=== PATIENT | male | born 1990 | race Caucasian/White ===

== ENCOUNTER 2022-04-21 12:23 | Emergency (ER) | payer BC, SELFPAY ==
--- NOTE | 2022-04-21 12:28 | ED.DENTAL ---
HPI - Dental/Oral General Chief complaint: Dental/Oral Stated complaint: DENTAL PAIN/FACIAL SWELLING Time Seen by Provider: 04/21/22 12:28 Source: patient and RN notes reviewed History of Present Illness HPI Narrative: Patient is a 31-year-old male who presents the urgent care with complaints of right upper dental pain with facial swelling. Patient states has been going on approximately 2 days. Denies of any fever, nausea or vomiting. Patient states he has been doing extra mouthwash and taking Tylenol. Denies of any trouble swallowing. No other acute complaints. No acute distress noted. Patient aware of the plan of care. Some parts of this dictation were generated by voice recognition software and may contain typographical and/or grammatical inaccuracies. Related Data Allergies Allergy/AdvReac Type Severity Reaction Status Date / Time hydrocodone Allergy Swelling Verified 04/21/22 12:49 meperidine [From Demerol] Allergy Hives Verified 04/21/22 12:49 Review of Systems Review of Systems: CONSTITUTIONAL: Denies fever, chills, or sweats. EYES: Denies visual changes, redness, or discharge. ENT: Denies rhinorrhea, congestion, sore throat, or otalgia. Reports of right upper dental pain and swelling CARDIOVASCULAR: Denies chest pain, palpitations, or edema. RESPIRATORY: Denies cough or dyspnea. GASTROINTESTINAL: Denies abdominal pain, nausea, vomiting, or diarrhea. GENITOURINARY: Denies dysuria or hematuria. SKIN: Denies rash or itching. MUSCULOSKELETAL: Denies back pain, joint pain, or myalgia. NEUROLOGIC: Denies headache, numbness, or weakness. All other systems reviewed are negative, except as documented in HPI. PMFSH Comments At the time of my signature, I reviewed and agree with the nursing past medical, surgical, social, and family history. There is no relevant family history pertinent to the patient complaint. Exam Narrative: GENERAL: This is a well-nourished, well-developed patient, in no apparent distress. HEAD: normocephalic, atraumatic. EYES: PERRL. Sclera clear/white. Vision is grossly intact. EARS: External ears normal, auditory canals clear and without drainage, TMs normal without perforation. Hearing grossly intact. NOSE: External nose normal with no obvious nasal discharge, nares without redness, no rhinorrhea. THROAT: Mucous membranes moist, posterior pharynx clear. DENTAL: Poor dentition with multiple caries throughout. Completely avulsed lateral upper right incisor and canine with surrounding edema/erythema/abscess, mild right upper facial edema NECK: Neck supple, non-tender without lymphadenopathy CARDIOVASCULAR: Regular rate and rhythm without murmurs, gallops, or rubs. RESPIRATORY: Clear to auscultation. Breath sounds equal bilaterally. No wheezes, rales, or rhonchi. SKIN: warm, intact with no suspicious lesions or rash, good texture and turgor. NEURO: awake, alert, and oriented to person, place and time. There were no obvious focal neurologic abnormalities. EXTREMITIES: No clubbing, cyanosis, or edema. Course Course Level of Care: Express Care Visit Vital Signs Vital signs: Vital Signs Temperature 97.2 F L 04/21/22 12:50 Pulse Rate 76 04/21/22 12:50 Respiratory Rate 18 04/21/22 12:50 Blood Pressure 119/80 04/21/22 12:50 Pulse Oximetry 98 04/21/22 12:50 Temperature 97.2 F L 04/21/22 12:50 Pulse Rate 76 04/21/22 12:50 Respiratory Rate 18 04/21/22 12:50 Blood Pressure 119/80 04/21/22 12:50 Pulse Oximetry 98 04/21/22 12:50 Reviewed MDM - Dental/Oral MDM Narrative Medical decision making narrative: Advised the patient to complete the oral antibiotic regimen as prescribed. Be sure to eat and drink with the medication. May continue the mouthwash and the is good oral hygiene. Use Tylenol/ibuprofen as needed for pain. May use a warm compress or ice to the face for swelling and discomfort. If you have any increase in swelling associated with difficulty swallowing
[2022-04-21 12:50] VITALS: BP 119/80; PULSE 76; RESP 18; TEMP 36.2; O2SAT 98
== END 2022-04-21 13:05 | disposition home or self-care (01) ==
PROVIDERS: Emergency Provider Nurse Practitioner Family
DX: K04.7 Periapical abscess without sinus (principal)
CPT/HCPCS: 99213; G0463

== ENCOUNTER 2024-07-03 19:00 | Emergency (ER) | payer OTHER, SELFPAY ==
[2024-07-03 19:12] VITALS: BP 118/71; PULSE 82; RESP 18; TEMP 36.8; O2SAT 96
[2024-07-03] MEDS: CIPROFLOXACIN 500 MG TAB PO (20:32)
[2024-07-03 21:02] VITALS: BP 141/97; PULSE 63; RESP 14; O2SAT 98
[2024-07-03] MEDS: CLINDAMYCIN HCL 150 MG CAP 600 MG PO (21:02)
--- NOTE | 2024-07-04 02:25 | ED.EAR ---
HPI - Ear Problem General Chief complaint: Ear Stated complaint: ear infection Time Seen by Provider: 07/03/24 19:30 History of Present Illness HPI Narrative: Patient states that he tried to pop a pimple behind his left ear and it became significantly tender and started swelling, started yesterday. No systemic symptoms Related Data Allergies Allergy/AdvReac Type Severity Reaction Status Date / Time hydrocodone Allergy Swelling Verified 07/03/24 19:19 meperidine [From Demerol] Allergy Hives Verified 07/03/24 19:19 Review of Systems Review of Systems: All systems reviewed & are unremarkable except as noted in HPI and below Exam Narrative: EXAMINATION OF ORGAN SYSTEMS/BODY AREAS: Constitutional: Vital signs per nursing GENERAL:[No acute distress, non-toxic appearing.] HEAD: Normal with no signs of head trauma. EYES: EOMI, conjunctiva normal ENT: Fluctuance retroauricular with pointing and tenderness; small/minimal swelling/tenderness to mastoid LUNGS: Nonlabored breathing. HEART: [Regular rate and rhythm] ABD: No distension EXT: Normal range of motion SKIN: [No rashes or lesions.] NEURO: [Alert and oriented x 3. No gross focal sensory or strength deficits.] PSYCH: Normal affect Course Vital Signs Vital signs: Vital Signs Temperature 98.3 F 07/03/24 19:12 Pulse Rate 82 07/03/24 19:12 Respiratory Rate 18 07/03/24 19:12 Blood Pressure 118/71 07/03/24 19:12 Pulse Oximetry 96 07/03/24 19:12 Oxygen Delivery Room Air 07/03/24 19:12 Temperature 98.3 F 07/03/24 19:12 Pulse Rate 63 07/03/24 21:02 Respiratory Rate 14 07/03/24 21:02 Blood Pressure 141/97 H 07/03/24 21:02 Pulse Oximetry 98 07/03/24 21:02 Oxygen Delivery Room Air 07/03/24 19:12 Procedures Abscess I/D other: Date of Incision: 07/03/24 Side (if applicable): left Local Anesthetic: lidocaine 1% Amount of anesthesia used (mL): 2 Technique: incised with #11 blade and probed loculations Amount of fluid expressed (mL): 0.5 Medical Decision Making MDM Narrative Medical decision making narrative: 34-year-old male presenting with retroauricular abscess. No significant mastoid swelling or tenderness and no systemic symptoms and normal vital signs. I did call ENT on-call Dr. Triana and discussed this with him and he states safe to drain at bedside here with antibiotics that cover for Pseudomonas and follow-up in the clinic. He is given a dose of clindamycin and ciprofloxacin and strict return precautions and follow-up instructions, I have asked him to call tomorrow to try to be seen in the clinic tomorrow. Vital Signs Vital Signs: Vital Signs Temperature 98.3 F 07/03/24 19:12 Pulse Rate 82 07/03/24 19:12 Respiratory Rate 18 07/03/24 19:12 Blood Pressure 118/71 07/03/24 19:12 Pulse Oximetry 96 07/03/24 19:12 Oxygen Delivery Room Air 07/03/24 19:12 Temperature 98.3 F 07/03/24 19:12 Pulse Rate 63 07/03/24 21:02 Respiratory Rate 14 07/03/24 21:02 Blood Pressure 141/97 H 07/03/24 21:02 Pulse Oximetry 98 07/03/24 21:02 Oxygen Delivery Room Air 07/03/24 19:12 Discharge Plan Discharge Clinical Impression: Abscess of external ear Patient Disposition: Home, Self-Care Condition: Stable Instructions: Antibiotic Form, Abscess Incision and Drainage (DC) Additional Instructions: Call/go to the ENT tomorrow for wound recheck; you may need further drainage/treatment of this ear. Come back to the ER if your symptoms worsen especially if you start having swelling/pain to the bone behind your ear. Prescriptions: New ciprofloxacin HCl 500 mg tablet 500 mg PO Q12H Qty: 14 0RF clindamycin HCl 300 mg capsule 600 mg PO Q8H 7 Days Qty: 42 0RF No Action amoxicillin-pot clavulanate 875-125 mg tablet 1 tablet PO Q12H Qty: 20 0RF ibuprofen 800 mg tablet 800 mg PO TID PRN (Reason: pain) Qty: 60 0RF Fol
== END 2024-07-03 21:03 | disposition home or self-care (01) ==
PROVIDERS: Emergency Provider Emergency Medicine
DX: H60.02 Abscess of left external ear (principal)
CPT/HCPCS: 69000; 99283; A9270

== ENCOUNTER 2024-07-13 09:19 | Outpatient (CLI) | payer OTHER, SELFPAY ==
--- NOTE | ~2024-07-13 | XR_ITS ---
XR foot LT min 3V Ordering provider: Cain Rider MD History: . JOINT AND BACK PAIN . Comparison: None. FINDINGS: BONES: No acute fracture or dislocation. JOINT SPACES: Normal. No tarsal coalition. SOFT TISSUES: Normal. IMPRESSION: No acute osseous abnormality left foot. Reviewed, dictated and finalized at location A.
--- NOTE | ~2024-07-13 | XR_ITS ---
XR foot RT min 3V Ordering provider: Cain Rider MD History: . JOINT AND BACK PAIN . Comparison: None. FINDINGS: BONES: No acute fracture or dislocation. JOINT SPACES: Normal. No tarsal coalition. SOFT TISSUES: Normal. IMPRESSION: No acute osseous abnormality of the right foot. Reviewed, dictated and finalized at location A.
--- NOTE | ~2024-07-13 | XR_ITS ---
XR shoulder LT min 2V Ordering provider: Cain Rider MD History: . JOINT AND BACK PAIN . Comparison: None. FINDINGS: BONES: No acute fracture or dislocation. JOINT SPACES: The acromioclavicular joint is normal. The glenohumeral joint is normal. SOFT TISSUES: Normal. IMPRESSION: No acute osseous abnormality left shoulder. Reviewed, dictated and finalized at location A.
--- NOTE | ~2024-07-13 | XR_ITS ---
XR knee LT min 4V Ordering provider: Cain Rider MD History: . JOINT AND BACK PAIN . Comparison: December 27, 2004 FINDINGS: BONES: No acute fracture or dislocation. Postoperative changes in the patella. JOINT SPACES: Normal. SOFT TISSUES: Normal. IMPRESSION: No acute osseous abnormality left knee. Reviewed, dictated and finalized at location A.
--- NOTE | ~2024-07-13 | XR_ITS ---
XR knee RT min 4V Ordering provider: Cain Rider MD History: . JOINT AND BACK PAIN . Comparison: None. FINDINGS: BONES: No acute fracture or dislocation. Postoperative changes in the patella. JOINT SPACES: Normal. SOFT TISSUES: Normal. IMPRESSION: No acute osseous abnormality right knee. Reviewed, dictated and finalized at location A.
--- NOTE | ~2024-07-13 | XR_ITS ---
3 VIEWS LUMBAR SPINE Ordering provider: Cain Rider MD History: . JOINT AND BACK PAIN . Comparison: None. FINDINGS: VERTEBRAL BODIES:Slight anterior loss of height is seen in L1 which is most likely chronic. No visib le acute fracture or subluxation. Degenerative changes of the spine. DISK SPACES: Slight Narrowing of the disc L2-L3, L3-L4 and L4-L5. Facet joint disease at the level of L4-L5 and L5-S1. SOFT TISSUES: Normal. IMPRESSION: No acute osseous abnormality lumbar spine. Reviewed, dictated and finalized at location A.
--- NOTE | ~2024-07-13 | XR_ITS ---
XR shoulder RT min 2V Ordering provider: Cain Rider MD History: . JOINT AND BACK PAIN, HX IRINA KNEE SURGERY, NKI . Comparison: None. FINDINGS: BONES: No acute fracture or dislocation. JOINT SPACES: The acromioclavicular joint is normal. The glenohumeral joint is normal. SOFT TISSUES: Normal. IMPRESSION: No acute osseous abnormality right shoulder. Reviewed, dictated and finalized at location A.
== END 2024-07-13 09:20 | disposition home or self-care (01) ==
PROVIDERS: PCP Emergency Medicine; Visit Provider Emergency Medicine
DX: M54.50 Low back pain, unspecified (principal)
CPT/HCPCS: 72100; 73030; 73564; 73630